=== PATIENT | female | born 2000 | race Caucasian/White ===

== ENCOUNTER 2020-08-26 10:49 | Inpatient (IN) | payer MEDICAID, OTHER ==
[~2020-08-26] VITALS: Ht 170.2 cm; Wt 67.1 kg
[2020-08-26] MEDS ORDERED: ALPR0.255 PO (12:44)
[2020-08-26] MEDS ORDERED: ESCI10TA61 PO (12:47)
[2020-08-26 13:57] LABS: BASOPHILS % (AUTO) 0.3 % (0.0-2.0); EOSINOPHILS % (AUTO) 0.2 % (1.0-6.0); HEMOGLOBIN 12.5 g/dL (12.0-16.0); LYMPHOCYTES # (AUTO) 1.1 K/uL (1.0-4.8); LYMPHOCYTES % (AUTO) 13.8 % (22.0-44.0); MEAN CORPUSCULAR HEMOGLOBIN 28.3 pg (26.0-34.0); MEAN CORPUSCULAR HGB CONC 32.8 G/dL (31.0-37.0); MEAN CORPUSCULAR VOLUME 86 fL (80-100); MONOCYTES # (AUTO) 0.4 K/uL (0.1-1.0); MONOCYTES % (AUTO) 5.6 % (2.0-9.0); NEUTROPHILS # (AUTO) 6.2 K/uL (1.8-7.7); NEUTROPHILS % (AUTO) 80.1 % (40.0-70.0); PLATELET COUNT (AUTO) 192 K/uL (150-450); RED BLOOD CELL COUNT(AUTO) 4.41 MIL/uL (4.00-5.20); RED CELL DISTRIBUTION WIDTH 13.6 % (11.5-14.5)
[2020-08-26 14:08] LABS: ANION GAP 11 mmol/L (8-16); CALCIUM, TOTAL 9.2 mg/dL (8.8-10.5); CARBON DIOXIDE 23 mmol/L (22-29); CHLORIDE 103 mmol/L (98-107); CREATININE 0.69 mg/dL (0.60-1.30); GLOMERULAR FILTR. RATE CALC > 60 mL/min (>60); GLUCOSE,RANDOM 79 mg/dL (70-110); POTASSIUM 3.8 mmol/L (3.5-5.1); SODIUM SERUM 137 mmol/L (136-145); UREA NITROGEN, BLOOD 17 mg/dL (7-18)
[2020-08-26 14:15] LABS: ALANINE AMINOTRANSFERASE 15 U/L (12-78); ALBUMIN 4.3 g/dL (3.4-5.0); ALKALINE PHOSPHATASE 49 U/L (46-116); ASPARTATE AMINOTRANSFERASE 20 U/L (15-37); BILIRUBIN,TOTAL 0.6 mg/dL (0.1-1.0); TOTAL PROTEIN, SERUM 8.2 g/dL (6.4-8.2)
[2020-08-26] MEDS ORDERED: QUEtiapine FUMARATE 100 MG TABLET PO PRN (15:15)
[2020-08-26] MEDS ORDERED: MAGNESIUM HYDROXIDE SUSPENSION 30 ML UDCUP PO PRN (15:15)
[2020-08-26] MEDS ORDERED: LOPERAMIDE HCL 2 MG CAPSULE PO PRN (15:15)
[2020-08-26] MEDS ORDERED: LORazepam 2 MG TABLET PO PRN (15:15)
[2020-08-26] MEDS ORDERED: GuaiFENesin/D-METHORPHAN [SUGAR-FREE] 200-20MG/10 ML SYRUP UDCUP PO PRN (15:15)
[2020-08-26] MEDS ORDERED: ACETAMINOPHEN 325 MG TABLET PO PRN (15:15)
[2020-08-26] MEDS ORDERED: ZOLPIDEM TARTRATE 10 MG TABLET PO PRN (15:15)
[2020-08-26] MEDS ORDERED: HydrOXYzine PAMOATE 50 MG CAPSULE PO PRN (15:15)
[2020-08-26] MEDS ORDERED: MAG HYDROX/AL HYDROX/SIMETH ES 30 ML SUSPENSION UDCUP PO PRN (15:15)
[2020-08-26] MEDS ORDERED: TUBERCULIN, PURIFIED PROTEIN DERIVATIVE 5 TU/0.1 ML SYRINGE ID ONE (15:15)
[2020-08-26] MEDS ORDERED: PROMETHAZINE HCL 25 MG TABLET PO PRN (15:15)
[2020-08-26 16:01] LABS: COVID AG,FIA SOURCE NASOPHARYNGEAL
[2020-08-26 16:15] VITALS: BP 136/69
[2020-08-26] MEDS ORDERED: INFLUENZA VIRUS VACCINE QVS 2020-21 (6MO+)/PF 60 MCG/0.5 ML SYRINGE IM ONE (20:15)
[2020-08-26] MEDS: THIAMINE 100 MG TABLET PO SCH (20:27)
[2020-08-26] MEDS: DIVALPROEX SODIUM 500 MG ER TABLET PO SCH (20:27)
[2020-08-27 07:18] LABS: CHOL/HDL RATIO 2.4 (3.9-5.7); FREE T4 (FREE THYROXINE) 1.22 ng/dL (0.76-1.46); THYROID STIMULATING HORMONE 0.49 uIU/mL (0.36-3.74)
[2020-08-27 09:14] LABS: HEMOGLOBIN A1C 5.4 % (3.8-5.6)
[2020-08-27] MEDS: OMEGA-3/DHA/EPA/FISH OIL 1,000 MG CAPSULE PO SCH (11:09)
[2020-08-27] MEDS: MULTIVITAMINS WITH MINERALS, THERAPEUTIC TABLET PO SCH (11:09)
[2020-08-27] MEDS: NALTREXONE HCL 50 MG TABLET PO SCH (11:10)
[2020-08-27] MEDS: FOLIC ACID 1 MG TABLET PO SCH (11:10)
[2020-08-27] MEDS: FLUoxetine HCL 20 MG CAPSULE PO SCH (11:10)
[2020-08-27] MEDS: THIAMINE 100 MG TABLET PO SCH ×2 (11:10→16:18)
[2020-08-27 16:30] VITALS: BP 118/66
[2020-08-27] MEDS: DIVALPROEX SODIUM 500 MG ER TABLET PO SCH (20:14)
[2020-08-28 08:00] VITALS: BP 110/70
[2020-08-28] MEDS: FLUoxetine HCL 20 MG CAPSULE PO SCH (11:20)
[2020-08-28] MEDS: THIAMINE 100 MG TABLET PO SCH ×2 (11:20→16:33)
[2020-08-28] MEDS: MULTIVITAMINS WITH MINERALS, THERAPEUTIC TABLET PO SCH (11:20)
[2020-08-28] MEDS: NALTREXONE HCL 50 MG TABLET PO SCH (11:20)
[2020-08-28] MEDS: FOLIC ACID 1 MG TABLET PO SCH (11:20)
[2020-08-28] MEDS: OMEGA-3/DHA/EPA/FISH OIL 1,000 MG CAPSULE PO SCH (11:20)
[2020-08-28 16:55] VITALS: BP 104/60
[2020-08-28] MEDS ORDERED: OMEG-135 PO (20:30)
[2020-08-28] MEDS ORDERED: DIVA-85 PO (20:30)
[2020-08-28] MEDS ORDERED: NALT50TA PO (20:30)
[2020-08-28] MEDS ORDERED: FLUO-191 PO (20:30)
[2020-08-28] MEDS ORDERED: DIVALPROEX SODIUM 250 MG ER TABLET PO SCH (21:00)
[2020-08-29 08:00] VITALS: BP 108/56
[2020-08-29] MEDS: MULTIVITAMINS WITH MINERALS, THERAPEUTIC TABLET PO SCH (08:17)
[2020-08-29] MEDS: FOLIC ACID 1 MG TABLET PO SCH (08:17)
[2020-08-29] MEDS: THIAMINE 100 MG TABLET PO SCH (08:17)
[2020-08-29] MEDS: FLUoxetine HCL 20 MG CAPSULE PO SCH (08:17)
[2020-08-29] MEDS: NALTREXONE HCL 50 MG TABLET PO SCH (08:17)
[2020-08-29] MEDS: OMEGA-3/DHA/EPA/FISH OIL 1,000 MG CAPSULE PO SCH (08:17)
[2020-08-29] MEDS ORDERED: FOLI-130 PO (12:08)
[2020-08-29] MEDS ORDERED: MULT-1239 PO (12:08)
[2020-08-29] MEDS ORDERED: THIA100T80 PO (12:08)
== END 2020-08-29 13:10 | disposition home or self-care (01) | DRG 751 ==
LOC: EMS 10:51 → 3EI 15:01
PROVIDERS: ADMIT Psychiatry & Neurology Psychiatry; ATTEND Psychiatry & Neurology Psychiatry
DX: F33.2 Major depressive disorder, recurrent severe without psychotic features (principal); F41.0 Panic disorder [episodic paroxysmal anxiety]; F43.10 Post-traumatic stress disorder, unspecified; R45.851 Suicidal ideations; Z88.8 Allergy status to other drugs, medicaments and biological substances; F12.90 Cannabis use, unspecified, uncomplicated; F14.90 Cocaine use, unspecified, uncomplicated; F19.10 Other psychoactive substance abuse, uncomplicated; Z20.828 Contact with and (suspected) exposure to other viral communicable diseases; Z28.21 Immunization not carried out because of patient refusal
CPT/HCPCS: 80074; 83036; 84439; 84443; 86592; 87426; G0480